=== PATIENT | female | born 1985 | race Caucasian/White ===

== ENCOUNTER 2017-09-05 16:39 | Emergency (ER) | payer BC ==
--- NOTE | 2017-09-05 20:33 | UC ---
FLU HPI - HPI Summary HPI Summary: ONSET OF SUBJECTIVE FEVER, COUGH, SANDERSON, MYALGIAS, FATIGUE, SCRATCHY THROAT YESTERDAY. SPENT THE HOLIDAYS WITH [id number] WHO CALLED TODAY AND STATES THEY TESTED POSITIVE FOR FLU A. UTD FLU SHOT - History of Current Complaint Chief Complaint: UCGeneralIllness Stated Complaint: SORE THROAT Time Seen by Provider: 09/05/17 16:40 Hx Obtained From: Patient, Family/Automotive Repair Technician - Hx Last Menstrual Period: 08/08/17 Onset/Duration: Gradual Onset, Lasting Days - 1 DAY, Still Present Severity Currently: Moderate Severity Initially: Moderate Pain Intensity: 3 Pain Scale Used: 0-10 Numeric Associated Signs & Symptoms: Positive: Fever, Myalgia, Cough, Sore Throat, Headache - Allergy/Home Medications Allergies/Adverse Reactions: Allergies Allergy/AdvReac Type Severity Reaction Status Date / Time Sulfamethoxazole Allergy Severe Rash Verified 09/05/17 17:00 w/Trimethoprim [From Bactrim] Home Medications: Home Medications Gabapentin CAP(*) [Neurontin 100 mg CAP(*)] 100 mg PO BID 09/05/17 [History Confirmed 09/05/17] PMH/Surg Hx/FS Hx/Imm Hx Previously Healthy: Yes - Surgical History Surgical History: Yes Surgery Procedure, Year, and Place: tonsillectomy,CHOLECYSTECTOMY - Family History Known Family History: Negative: Hypertension - Social History Alcohol Use: Occasionally Substance Use Type: None Smoking Status (MU): Never Smoked Tobacco Type: Cigarettes Have You Smoked in the Last Year: No - Immunization History Most Recent Influenza Vaccination: 05/2017 Most Recent Tetanus Shot: 10/18/13 Most Recent Pneumonia Vaccination: none Review of Systems Constitutional: Fever, Chills, Fatigue ENT: Sore Throat Respiratory: Cough Cardiovascular: Negative Gastrointestinal: Negative Musculoskeletal: Myalgia Neurological: Headache All Other Systems Reviewed And Are Negative: Yes Physical Exam Triage Information Reviewed: Yes Appearance: No Pain Distress, Well-Nourished, Ill-Appearing - MILD Vital Signs: Initial Vital Signs Temp 98.8 F 09/05/17 16:56 Pulse 103 09/05/17 16:56 Resp 18 09/05/17 16:56 Pulse Ox 100 09/05/17 16:56 Eyes: Positive: Conjunctiva Clear ENT: Positive: Hearing grossly normal, Pharynx normal, TMs normal Neck: Positive: Supple, Nontender, Enlarged Nodes @ - SHOTTY SPFL CERVICAL LAD Respiratory Exam: Normal Cardiovascular: Positive: Tachycardia Abdomen Description: Positive: Soft Musculoskeletal: Positive: No Edema Neurological: Positive: Alert Psychological: Positive: Normal Response To Family, Age Appropriate Behavior Skin: Negative: rashes Diagnostics - Laboratory Diagnostic Studies Completed/Ordered: RAPID FLU - POS FLU A Flu Course/Dx - Differential Dx/Diagnosis Provider Diagnoses: INFLUENZA A Discharge - Discharge Plan Condition: Stable Disposition: HOME Prescriptions: Oseltamivir CAP* [Tamiflu CAP*] 75 mg PO BID #10 cap Patient Education Materials: Influenza (ED) Forms: *Work Release Referrals: Heaven James MD [Primary Care Provider] - Additional Instructions: SWAB POSITIVE FOR INFULENZA A. TAKE TAMIFLU FOR FULL COURSE. REST, HYDRATE, OTC MEDS NEEDED. CALL THE NUMBER BELOW FOR ASSISTANCE IN ESTABLISHING WITH A PCP An additional resource available to assist in finding the appropriate physician for your health care needs is the [facility] ([facility]). You may contact them by calling [phone].
== END 2017-09-05 18:04 | disposition home or self-care (01) ==
LOC: UCEAST 16:39
DX: J10.1 Influenza due to other identified influenza virus with other respiratory manifestations (principal); Z88.2 Allergy status to sulfonamides
CPT/HCPCS: 87502; 99212; G0463

== ENCOUNTER 2018-07-29 08:03 | Emergency (ER) | payer BC ==
[2018-07-29 08:20] VITALS: BP 130/72
--- NOTE | 2018-07-29 13:02 | UC ---
Psychiatric Complaint HPI - HPI Summary HPI Summary: PATIENT WITH A KNOWN HISTORY OF ANXIETY PREVIOUSLY ON MEDICATION PRESENTS WITH WORSENING SYMPTOMS OVER THE PAST SEVERAL MONTHS. 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 WAS ON SSRI MEDICATION FOR ANXIETY IN HER EARLY 20s WITH GOOD EFFECT. IS CURRENTLY LOOKING TO ESTABLISH WITH A PCP AND IS WONDERING ABOUT BEGINNING THIS MEDICATION TODAY. PATIENT DENIES PANIC ATTACKS BUT REPORTS A CONSTANT GENERAL FEELING OF ANXIETY AND WORRY THAT IS NEGATIVELY IMPACTING HER ABILITY TO CARRY OUT HER DAILY ACTIVITIES. DENIES ANY SUICIDAL OR HOMICIDAL IDEATION. HAS GOOD INSIGHT INTO HER CONDITION AND STRONG SUPPORT FROM HER AT HOME. IS CURRENTLY IN COUNSELING WITH A LOCAL THERAPIST WHICH SHE HAS FOUND VERY HELPFUL. - History Of Current Complaint Chief Complaint: UCGeneralIllness Stated Complaint: ANXIETY Time Seen by Provider: 07/29/18 08:20 Hx Obtained From: Patient Hx Last Menstrual Period: 3 weeks ago Onset/Duration: Gradual Onset, Lasting Weeks, Still Present Severity Initially: Mild Severity Currently: Moderate Character: Anxious Aggravating Factor(s): Recent Stress Alleviating Factor(s): Counseling - Allergies/Home Medications Allergies/Adverse Reactions: Allergies Allergy/AdvReac Type Severity Reaction Status Date / Time MS Sulfamethoxazole Allergy Severe Rash Verified 07/29/18 08:12 w/Trimethoprim [From Bactrim] Home Medications: Home Medications Multivitamins/Minerals TAB* [Theragran/minerals TAB*] 1 tab PO DAILY 07/29/18 [ History Confirmed 07/29/18] PMH/Surg Hx/FS Hx/Imm Hx Psychological History: Anxiety - Surgical History Surgical History: Yes Surgery Procedure, Year, and Place: TONSILECTOMY; CHOLECYSTECTOMY; ARTHROSCOPIC LEFT WRIST- [facility] REPAIR 10/26 - Family History Known Family History: Negative: Hypertension - Social History Alcohol Use: Occasionally Substance Use Type: None Smoking Status (MU): Never Smoked Tobacco Type: Cigarettes Have You Smoked in the Last Year: No - Immunization History Most Recent Influenza Vaccination: 05/2017 Most Recent Tetanus Shot: 10/18/13 Most Recent Pneumonia Vaccination: none Review of Systems All Other Systems Reviewed And Are Negative: Yes Constitutional: Positive: Negative Respiratory: Positive: Negative Cardiovascular: Positive: Negative Gastrointestinal: Positive: Negative Psychological: Positive: Other - EMOTIONAL BUT NOT TEARFUL Physical Exam Triage Information Reviewed: Yes Appearance: Well-Appearing, No Pain Distress, Well-Nourished Vital Signs: Initial Vital Signs Temp 98.1 F 07/29/18 08:15 Pulse 82 07/29/18 08:15 Resp 16 07/29/18 08:15 BP 130/72 07/29/18 08:15 Pulse Ox 97 07/29/18 08:15 Vital Signs Reviewed: Yes Eyes: Positive: Conjunctiva Clear ENT: Positive: Hearing grossly normal Neck: Positive: Supple Respiratory: Positive: No respiratory distress, No accessory muscle use Cardiovascular: Positive: Pulses Normal Abdomen Description: Positive: Soft Musculoskeletal: Positive: No Edema Neurological: Positive: Alert Psychological: Positive: Normal Response To Family, Age Appropriate Behavior Skin: Negative: Rashes Psych Complaint Course/Dx - Differential Dx/Diagnosis Provider Diagnoses: ANXIETY Discharge - Sign-Out/Discharge Documenting (check all that apply): Patient Departure All imaging exams completed and their final reports reviewed: No Studies - Discharge Plan Condition: Stable Disposition: HOME Prescriptions: LORazepam [Lorazepam] 1 mg PO BID PRN #20 tablet MDD 2 PRN Reason: Anxiety Sertraline* [Zoloft*] 100 mg PO DAILY #30 tab Patient Education Materials: Anxiety (ED) Referrals: [facility] [Outside] - 2 Weeks Additional Instructions: START THE SERTRALINE ONCE DAILY TO HELP WITH YOUR ANXIETY SYMPTOMS. BE AWARE THAT THIS MEDICATION MAY TAKE SEVERAL WEEKS TO BE EFFECTIVE. START WITH 50 MG ONCE DAILY FOR ABOUT 2 WEEKS AND THEN FOLLOW UP WITH [facility] OR A PCP TO DISCUSS DOSING. PRESCRIPTION FOR ATIVAN ALSO SENT IN FOR YOU TO USE FOR ANY ACUTE PANIC ATTACK SITUATIONS WHILE YOU ARE GETTING YOUR SERTRALINE DOSING ADJUSTED TO EFFECTIVE LEVELS. PLEASE NOTE THAT THIS MEDICATION IS A CONTROLLED SUBSTANCE AND MAY BE HABIT FORMING. IT SHOULD NOT BE USED TO MANAGE ANXIETY ON A CHRONIC BASIS. WOULD RECOMMEND USING HALF A TABLET NEEDED TO START WITH. CONTINUE YOUR COUNSELING YOU HAVE BEEN. CALL THE NUMBER BELOW FOR ASSISTANCE IN ESTABLISHING WITH A PCP An additional resource available to assist in finding the appropriate physician for your health care needs is the [facility] ([facility]). You may contact them by calling [phone]. - Billing Disposition and Condition Condition: STABLE Disposition: Home
== END 2018-07-29 09:03 | disposition home or self-care (01) ==
LOC: UCEAST 08:03
DX: F41.9 Anxiety disorder, unspecified (principal); Z88.2 Allergy status to sulfonamides; G89.29 Other chronic pain
CPT/HCPCS: 99212; G0463

== ENCOUNTER 2019-10-19 13:46 | Emergency (ER) | payer BC ==
[2019-10-19 14:13] VITALS: BP 129/71
[2019-10-19 14:32] LABS: Influenza A Molecular Negative (Negative); Influenza B Molecular Negative (Negative)
--- NOTE | 2019-10-19 14:45 | UC ---
FLU HPI - HPI Summary HPI Summary: PATIENT WAS EXPOSED TO MULTIPLE PEOPLE WHO HAD THE FLU AT A [facility] LAST WEEK. YESTERDAY STARTED COUGHING. TODAY DEVELOPED LOW-GRADE FEVER, SORE THROAT, CONGESTION, HEADACHE AND BODY ACHES. UP-TO-DATE FLU SHOT THIS SEASON. - History of Current Complaint Chief Complaint: UCRespiratory Stated Complaint: FLU LIKE SYMPTOMS Time Seen by Provider: 10/19/19 14:03 Hx Obtained From: Patient Hx Last Menstrual Period: 3 weeks ago Onset/Duration: Gradual Onset, Lasting Hours, Still Present Severity Currently: Moderate Severity Initially: Moderate Pain Intensity: 0 Pain Scale Used: 0-10 Numeric Associated Signs & Symptoms: Positive: Fever, Myalgia, Cough, Sore Throat, Nasal Congestion, Headache - Allergy/Home Medications Allergies/Adverse Reactions: Allergies Allergy/AdvReac Type Severity Reaction Status Date / Time sulfamethoxazole Allergy Severe Rash Verified 10/19/19 14:36 [From Bactrim] trimethoprim [From Bactrim] Allergy Severe Rash Verified 10/19/19 14:36 Home Medications: Home Medications Escitalopram Oxalate [Lexapro 10 mg] 10 mg PO DAILY 10/19/19 [History Confirmed 10/19/19] PMH/Surg Hx/FS Hx/Imm Hx Psychological History: Depression - Surgical History Surgical History: Yes Surgery Procedure, Year, and Place: TONSILECTOMY; CHOLECYSTECTOMY; ARTHROSCOPIC LEFT WRIST- [facility] REPAIR 10/26 - Family History Known Family History: Negative: Hypertension - Social History Alcohol Use: Occasionally Substance Use Type: None Smoking Status (MU): Never Smoked Tobacco Type: Cigarettes Have You Smoked in the Last Year: No - Immunization History Most Recent Influenza Vaccination: 05/2017 Most Recent Tetanus Shot: 10/18/13 Most Recent Pneumonia Vaccination: none Review of Systems All Other Systems Reviewed And Are Negative: Yes Constitutional: Positive: Fever, Fatigue ENT: Positive: Sore Throat, Nasal Discharge Respiratory: Positive: Cough Cardiovascular: Positive: Negative Gastrointestinal: Positive: Negative Musculoskeletal: Positive: Myalgia Neurological/Mental Status: Positive: Headache Physical Exam Triage Information Reviewed: Yes Appearance: Well-Appearing, No Pain Distress, Well-Nourished Vital Signs: Initial Vital Signs Temp 100.7 F 10/19/19 14:11 Pulse 103 10/19/19 14:11 Resp 18 10/19/19 14:11 BP 129/71 10/19/19 14:11 Pulse Ox 99 02/11/20 14:11 Laboratory Tests 10/19/19 14:20 Influenza A (Rapid) Negative Influenza B (Rapid) Negative Vital Signs Reviewed: Yes Eyes: Positive: Conjunctiva Clear ENT: Positive: Hearing grossly normal Neck: Positive: Supple Respiratory Exam: Normal Cardiovascular: Positive: Tachycardia Abdomen Description: Positive: Soft Musculoskeletal: Positive: No Edema Neurological: Positive: Alert Psychological: Positive: Age Appropriate Behavior Skin: Negative: Rashes Flu Course/Dx - Course Course Of Treatment: FLU SWAB NEGATIVE. LIKELY VIRALLY MEDIATED SYMPTOMS THAT SHOULD RESOLVE ON THEIR OWN WITH TIME. REST, HYDRATE, OTC MEDS NEEDED. FOLLOW-UP IF NOT IMPROVING EXPECTED. - Differential Dx/Diagnosis Provider Diagnosis: Flu-like symptoms Discharge ED - Sign-Out/Discharge Documenting (check all that apply): Patient Departure All imaging exams completed and their final reports reviewed: No Studies - Discharge Plan Condition: Stable Disposition: HOME Patient Education Materials: Viral Syndrome (ED) Referrals: Julienne Alcantara MD [Primary Care Provider] - If Needed Additional Instructions: FLU NEGATIVE. YOUR SYMPTOMS ARE LIKELY VIRALLY MEDIATED AND SHOULD RESOLVE ON THEIR OWN WITH TIME. NO INDICATION FOR ANTIBIOTICS AT PRESENT. REST, HYDRATE, OTC MEDS NEEDED. SEEK FOLLOW-UP IF YOU ARE NOT IMPROVING OVER THE NEXT 1-2 WEEKS. - Billing Disposition and Condition Condition: STABLE Disposition: Home
== END 2019-10-19 14:45 | disposition home or self-care (01) ==
LOC: UCEAST 13:46
DX: R05 Cough (principal); R50.9 Fever, unspecified; J02.9 Acute pharyngitis, unspecified; R09.81 Nasal congestion; R51 Headache; M79.10 Myalgia, unspecified site; R09.89 Other specified symptoms and signs involving the circulatory and respiratory systems; R53.83 Other fatigue; F32.9 Major depressive disorder, single episode, unspecified; Z88.2 Allergy status to sulfonamides; Z79.899 Other long term (current) drug therapy
CPT/HCPCS: 99211; G0463